=== PATIENT | female | born 1935 ===

== ENCOUNTER → 2018-01-05 | Outpatient (CLI) | payer MEDICARE, OTHER ==
[~2018-01-05] MED LIST: AMLO-105 PO; ASPI-1471 PO; CHOL200018 PO; CIPR-214 PO; EZET10TA41 PO; FEXO-72 PO; LOR5/325 PO; METO-235 PO; NAPR-1043 PO; UBID100C9 PO
== END ==
LOC: LAB 08:36
PROVIDERS: ATTEND Internal Medicine
DX: R30.0 Dysuria (principal)
CPT/HCPCS: 81001; 87088

== ENCOUNTER 2018-01-06 10:27 | Emergency (ER) | payer MEDICARE, OTHER ==
--- NOTE | 2018-01-06 10:56 | ER Report ---
History and Physical Time Seen By MD: 10:56 Hx. of Stated Complaint: Patient tripped and fell. Hit head no LOC> Abrasion to bridge of nose and complaints of neck pain. C-collar placed at 1035. HPI/ROS CHIEF COMPLAINT: Fall HISTORY OF PRESENT ILLNESS: 82-year-old female patient presents to emergency r oom with complaint of a fall. Patient states that she was in her backyard and was walking when she caught the toe of her flip-flop causing her to fall forward. Patient states she put her hands out to catch herself, however she did hit her forehead on the concrete. Patient is unsure how she did that. Patient states she does have a significant headache. She also has some neck pain. P rafael is currently in a c-collar. Patient also has pain to the right lower leg and does have some bruising and abrasion there. Patient does not believe that she had any loss of consciousness, however she states she did have a stent in her forehead. She denies having any nausea, vomiting or diarrhea. Patient denies any shortness of breath or chest pain. REVIEW OF SYSTEMS: Respiratory: No cough, no dyspnea. Cardiovascular: No chest pain, no palpitations. Gastrointestinal: No vomiting, no abdominal pain. Musculoskeletal: As noted above Allergies: Coded Allergies: Nykjlit-Iil-Ner Reductase Inhibitor (Verified Adverse Reaction, Intermediate, myalgias, 01/06/18) Home Meds Active Scripts Ciprofloxacin Hcl (CIPROFLOXACIN HCL) 500 Mg Tablet, 1 TAB PO BID, #6 TAB 0 Refills Prov:LETY PARADA MD 01/05/18 Ezetimibe (ZETIA) 10 Mg Tablet, 1 TAB PO QDAY, #90 TAB 3 Refills Prov:LETY PARADA MD 12/01/17 Metoprolol Succinate (TOPROL XL) 100 Mg Tab.er.24h, 1 TAB PO QDAY, #90 TAB 3 Refills Prov:LETY PARADA MD 12/01/17 Amlodipine Besylate/Benazepril (LOTREL 10-20 MG CAPSULE) 1 Each Capsule, 1 CAP PO QDAY, #90 CAPSULE 3 Refills Prov:LETY PARADA MD 12/01/17 Reported Medications Ubidecarenone (CO Q-10) 100 Mg Capsule, 3 CAP PO QDAY, CAPSULE 12/01/17 Cholecalciferol (Vitamin D3) (VITAMIN D) 2,000 Unit Tablet, 1 TAB PO QDAY, 12/01/17 Fexofenadine Hcl (JOSE MARTIN ALLERGY) 60 Mg Tablet, 1 TAB PO BID PRN for allergies 12/01/17 Naproxen Sodium (ALEVE) 220 Mg Tablet, 1 TAB PO BID PRN for pain, TAB 12/01/17 Aspirin (ASPIR 81) 81 Mg Tablet.dr, 1 TAB PO 3XW, TAB 12/01/17 Past Medical/Surgical History Patient has a past medical history of irregular heartbeat, hypertension, hyperli pidemia Patient has a surgical history of hysterectomy, carpal tunnel release, knee surgery, cataract surgery. Reviewed Nurses Notes: Yes Smoking Status: Former Smoker Exposure to Second Hand Smoke?: Yes Hx Substance Use Disorder: No Hx Alcohol Use: No Constitutional Vital Sign - Last 24 Hours 01/06/18 01/06/18 01/06/18 01/06/18 10:43 10:52 10:52 10:57 Temp 97.0 Pulse 63 ? Resp 16 B/P (MAP) 124/69 Pulse Ox 94 01/06/18 01/06/18 01/06/18 01/06/18 10:57 11:02 11:02 11:07 Pulse ? 01/06/18 01/06/18 01/06/18 01/06/18 11:07 11:12 11:12 11:17 Pulse ? 01/06/18 01/06/18 01/06/18 01/06/18 11:17 11:22 11:22 11:27 Pulse ? 01/06/18 01/06/18 01/06/18 01/06/18 11:27 11:30 11:30 11:32 Pulse ??? 58 B/P (MAP) 133/71 (91) 133/71 (91) Pulse Ox 94 01/06/18 01/06/18 01/06/18 01/06/18 11:32 11:37 11:37 11:42 Pulse 58 59 59 62 Pulse Ox 94 93 93 92 01/06/18 01/06/18 01/06/18 01/06/18 11:42 11:47 11:47 11:52 Pulse 62 61 61 60 Pulse Ox 92 94 94 93 01/06/18 01/06/18 01/06/18 01/06/18 11:57 12:02 12:07 12:10 Pulse 57 62 61 B/P (MAP) 130/69 (89) Pulse Ox 93 95 95 Physical Exam General Appearance: The patient is alert, has no immediate need for airway protection and no current signs of toxicity. Respiratory: Chest is non tender, lungs are clear to auscultation. Cardiac: regular rate and rhythm Gastrointestinal: Abdomen is soft and non tender, no masses, bowel sounds normal. Musculoskeletal: Neck: Neck is unable to be assessed at this time secondary to c-collar in place. Extremities have full range of motion and are non tender. Skin: No rashes or lesions. Neuro: Patient is alert and oriented 4, cranial nerves II through XII grossly intact. DIFFERENTIAL DIAGNOSIS: After history and physical exam differential diagnosis was considered for head injury including but not limited to concussion, skull fracture, intraparenchymal contusion, subarachnoid, subdural and epidural hemato ma. Medical Decision Making EKG/Imaging Imaging EXAMINATION: CT Head without intravenous contrast CT Cervical spine without intravenous contrast HISTORY: Trauma. TECHNIQUE: Head: Axial images were obtained from the skull base to the vertex without intravenous contrast. Sagittal and coronal reformatted images are also submitted. Cervical spine: Axial images were obtained from the skull base through the upper thoracic spine without IV contrast administration. Coronal and sagittal reformatted images were obtained from the axial source data. One of the following dose optimization techniques was utilized in the performance of this exam: Automated exposure control; adjustment of the mA and/or kV according to the patient's size; or use of an iterative reconstruction technique. Specific details can be referenced in the facility's radiology CT exam operational policy. COMPARISON: None available. FINDINGS: HEAD: Brain volume: Normal. Ventricles: Negative. Acute ischemic changes: None. Hemorrhage: None. Masses / edema: None. Pena-white: Negative. White matter: Negative. Vessels: Calcified plaque in the carotid siphons and vertebral arteries. Normal density in the dural venous sinuses. Extra-axial: Negative. Calvarium / skull base: Negative. Visualized sinuses / orbits: Mild mucosal thickening in the ethmoid air cells. CERVICAL SPINE: Alignment: 3 mm of anterior listhesis of C5 over C6. Cranio-cervical junction: Moderate to severe degenerative changes in the atlantodental joint with partially calcified pannus posterior to the dens. Vertebral bodies: Negative. Posterior elements: Multilevel facet hypertrophy. 11 x 6 x 4 mm ligamentum flavum calcification on the left at C6-C7. Hardware: None. Disc Spaces: Multilevel degenerative disc disease. Soft tissues: No prevertebral soft tissue swelling. Visualized upper chest: Negative. IMPRESSION: 1. No acute intracranial abnormality. 2. No acute cervical spine fracture. 3. Multilevel degenerative disc disease and facet hypertrophy in the cervical spine. Report Dictated By: Jg Blevins MD at 01/06/2018 11:33 AM Report E-Signed By: Jg Blevins MD at 01/06/2018 11:42 AM Exam type: TIBIA FIBULA RIGHT History: Fell today, pain on right side Comparison: None. Findings: Two views of the right tibia and fibula demonstrate postsurgical changes to the proximal right tibia with multiple screws. There is no evidence of acute fracture or dislocation identified. Incidentally noted are moderate degenerative changes involving the lateral compartment and mild generative changes involving the medial compartment of the right knee IMPRESSION: 1. Postsurgical changes of the proximal right tibia although no evidence of acute fracture or dislocation seen Report Dictated By: Yolanda Castanon MD at 01/06/2018 11:30 AM Report E-Signed By: Yolanda Castanon MD at 01/06/2018 11:44 AM ED Course/Re-evaluation ED Course Patient was admitted to exam room, history and physical were obtained. Differential diagnoses were considered. On examination patient does have abrasion to the bridge of her nose, she has abrasion and bruising to the right lower leg as well. C-collar is in place. Patient was alert and oriented 4, cranial nerves II through XII grossly intact. Her age and the nature the fall CT scan of the head was done due to the neck pain is cervical spine CT was done as well. I did get an x-ray of the lower leg as she was having some tenderness there although she is able to walk and I did not anticipate any fractures. CT scan of the head and the neck were negative, x-rays of the right lower leg were also negative. I discussed the findings with the patient and her . I did remove the c-collar and patient was able to move her neck without any difficulty and without any pain. We will go ahead and discharge the patient home at this time. She states Tylenol or ibuprofen as a pain. She tried to emergency room if condition worsens. She is to follow-up with her primary care provider the next week. Patient and her verbalized understanding and agreement with plan. Decision to Disposition Date: Jan 06, 2018 Decision to Disposition Time: 12:05 Depart Departure Latest Vital Signs Vital Signs Date Time Temp Pulse Resp B/P (MAP) Pulse Ox O2 Delivery O2 Flow Rate FiO2 01/06/18 12:10 130/69 (89) 01/06/18 12:07 61 95 01/06/18 10:43 97.0 16 Impression: Primary Impression: Head contusion Additional Impression: Contusion of leg, right Condition: Improved Disposition: HOME OR SELF-CARE Referrals: LETY PARADA MD (PCP) Patient Instructions: Contusion in Adults (ED) Additional Instructions: Increase fluid intake. Get plenty of rest. Limit activity by pain. Ice sore areas. Follow up with your primary care provider in the next week. Return to the ER if condition worsens. Problem Qualifiers Primary Impression: Head contusion Encounter type: initial encounter Contusion of head detail: scalp Qualified Codes: S00.03XA - Contusion of scalp, initial encounter Additional Impression: Contusion of leg, right Encounter type: initial encounter Qualified Codes: S80.11XA - Contusion of right lower leg, initial encounter TORIN MONTESINOS Jan 06, 2018 10:56
--- NOTE | 2018-01-06 11:46 | RADIOLOGY IMAGING REPORT ---
FACILITY: [facility] [place] PATIENT NAME: Claudette Raymond : 1935 MR: [id number] V: [id number] EXAM DATE: ORDERING PHYSICIAN: TORIN MONTESINOS TECHNOLOGIST: Location: [facility] Patient: Claudette Raymond : 1935 Visit/Account:[id number] Date of Sevice: 01/06/2018 EXAMINATION: CT Head without intravenous contrast CT Cervical spine without intravenous contrast HISTORY: Trauma. TECHNIQUE: Head: Axial images were obtained from the skull base to the vertex without intravenous contrast. Sa gittal and coronal reformatted images are also submitted. Cervical spine: Axial images were obtained from the skull base through the upper thoracic spine with out IV contrast administration. Coronal and sagittal reformatted images were obtained from the axial source data. One of the following dose optimization techniques was utilized in the performance of this exam: Autom ated exposure control; adjustment of the mA and/or kV according to the patient's size; or use of an i terative reconstruction technique. Specific details can be referenced in the facility's radiology C T exam operational policy. COMPARISON: None available. FINDINGS: HEAD: Brain volume: Normal. Ventricles: Negative. Acute ischemic changes: None. Hemorrhage: None. Masses / edema: None. Pena-white: Negative. White matter: Negative. Vessels: Calcified plaque in the carotid siphons and vertebral arteries. Normal density in the dural venous sinuses. Extra-axial: Negative. Calvarium / skull base: Negative. Visualized sinuses / orbits: Mild mucosal thickening in the ethmoid air cells. CERVICAL SPINE: Alignment: 3 mm of anterior listhesis of C5 over C6. Cranio-cervical junction: Moderate to severe degenerative changes in the atlantodental joint with par tially calcified pannus posterior to the dens. Vertebral bodies: Negative. Posterior elements: Multilevel facet hypertrophy. 11 x 6 x 4 mm ligamentum flavum calcification on th e left at C6-C7. Hardware: None. Disc Spaces: Multilevel degenerative disc disease. Soft tissues: No prevertebral soft tissue swelling. Visualized upper chest: Negative. IMPRESSION: 1. No acute intracranial abnormality. 2. No acute cervical spine fracture. 3. Multilevel degenerative disc disease and facet hypertrophy in the cervical spine. Report Dictated By: Jg Blevins MD at 01/06/2018 11:33 AM Report E-Signed By: Jg Blevins MD at 01/06/2018 11:42 AM WSN:[email or web address]
--- NOTE | 2018-01-06 11:47 | RADIOLOGY IMAGING REPORT ---
FACILITY: [facility] PATIENT NAME: Claudette Raymond : 1935 MR: [id number] V: [id number] EXAM DATE: ORDERING PHYSICIAN: TORIN MONTESINOS TECHNOLOGIST: Location: [facility] Patient: Claudette Raymond : 1935 Visit/Account:[id number] Date of Sevice: 01/06/2018 EXAMINATION: CT Head without intravenous contrast CT Cervical spine without intravenous contrast HISTORY: Trauma. TECHNIQUE: Head: Axial images were obtained from the skull base to the vertex without intravenous contrast. Sa gittal and coronal reformatted images are also submitted. Cervical spine: Axial images were obtained from the skull base through the upper thoracic spine with out IV contrast administration. Coronal and sagittal reformatted images were obtained from the axial source data. One of the following dose optimization techniques was utilized in the performance of this exam: Autom ated exposure control; adjustment of the mA and/or kV according to the patient's size; or use of an i terative reconstruction technique. Specific details can be referenced in the facility's radiology C T exam operational policy. COMPARISON: None available. FINDINGS: HEAD: Brain volume: Normal. Ventricles: Negative. Acute ischemic changes: None. Hemorrhage: None. Masses / edema: None. Pena-white: Negative. White matter: Negative. Vessels: Calcified plaque in the carotid siphons and vertebral arteries. Normal density in the dural venous sinuses. Extra-axial: Negative. Calvarium / skull base: Negative. Visualized sinuses / orbits: Mild mucosal thickening in the ethmoid air cells. CERVICAL SPINE: Alignment: 3 mm of anterior listhesis of C5 over C6. Cranio-cervical junction: Moderate to severe degenerative changes in the atlantodental joint with par tially calcified pannus posterior to the dens. Vertebral bodies: Negative. Posterior elements: Multilevel facet hypertrophy. 11 x 6 x 4 mm ligamentum flavum calcification on th e left at C6-C7. Hardware: None. Disc Spaces: Multilevel degenerative disc disease. Soft tissues: No prevertebral soft tissue swelling. Visualized upper chest: Negative. IMPRESSION: 1. No acute intracranial abnormality. 2. No acute cervical spine fracture. 3. Multilevel degenerative disc disease and facet hypertrophy in the cervical spine. Report Dictated By: Jg Blevins MD at 01/06/2018 11:33 AM Report E-Signed By: Jg Blevins MD at 01/06/2018 11:42 AM WSN:[email or web address]
--- NOTE | 2018-01-06 11:48 | RADIOLOGY IMAGING REPORT ---
FACILITY: [facility] PATIENT NAME: Claudette Raymond : 1935 MR: [id number] V: [id number] EXAM DATE: ORDERING PHYSICIAN: TORIN MONTESINOS TECHNOLOGIST: [place] [facility] [place] Claudette [place] : 1935 Visit/Account:[id number] Date of Sevice: 01/06/2018 Exam type: TIBIA FIBULA RIGHT History: Fell today, pain on right side Comparison: None. Findings: Two views of the right tibia and fibula demonstrate postsurgical changes to the proximal right tibia with multiple screws. There is no evidence of acute fracture or dislocation identified. Incidentall y noted are moderate degenerative changes involving the lateral compartment and mild generative [place] es involving the medial compartment of the right knee IMPRESSION: 1. Postsurgical changes of the proximal right tibia although no evidence of acute fracture or disloc ation seen Report Dictated By: Yolanda Castanon MD at 01/06/2018 11:30 AM Report E-Signed By: Yolanda Castanon MD at 01/06/2018 11:44 AM WSN:[email or web address]
[2018-01-06 12:10] VITALS: BP 130/69
== END 2018-01-06 12:17 | disposition home or self-care (01) ==
LOC: ER 11:03
DX: S00.03XA Contusion of scalp, initial encounter (principal); S80.11XA Contusion of right lower leg, initial encounter
CPT/HCPCS: 70450; 72125; 99284

== ENCOUNTER → 2018-06-23 | Outpatient (CLI) | payer MEDICARE, OTHER ==
[~2018-06-23] MED LIST changes: +FLU180SY11 IM
--- NOTE | 2018-06-23 16:26 | RADIOLOGY IMAGING REPORT ---
FACILITY: [facility] [place] PATIENT NAME: Claudette Raymond : 1935 MR: [id number] V: [id number] EXAM DATE: ORDERING PHYSICIAN: FLEX GONZALEZ TECHNOLOGIST: Location: [facility] Patient: Claudette Raymond : 1935 Visit/Account:[id number] Date of Sevice: 06/23/2018 Bilateral lower extremity venous Doppler duplex ultrasound scan. HISTORY: Leg pain, edema. COMPARISON: None. A color flow Doppler duplex ultrasound examination with spectral analysis was performed on both lower extremities. The common femoral veins, superficial femoral veins, and popliteal veins are normal. Th christine vessels compress and augment normally. The upper portions of the trifurcation veins are unremarka ble. Portions of the deep veins of the calves are obscured. No intraluminal filling defects are ident ified to suggest acute thrombus in the deep venous system. No abnormal fluid collections. A venous reflux study was not performed at this time. Note that Doppler ultrasound is somewhat insensitive below the knees. IMPRESSION: Negative for acute deep vein thrombosis. Report Dictated By: Klaus Fernandez MD at 06/23/2018 4:20 PM Report E-Signed By: Klaus Fernandez MD at 06/23/2018 4:21 PM WSN:[email or web address]
== END ==
LOC: US 00:29
PROVIDERS: ATTEND Internal Medicine Cardiovascular Disease
DX: I50.31 Acute diastolic (congestive) heart failure (principal); R60.0 Localized edema
CPT/HCPCS: 36415; 82040; 82247; 82310; 82374; 82435; 82565; 82947; 83880; 84075; 84132; 84155; 84295; 84450; 84460; 84520; 85027; 93306; 93970

== ENCOUNTER 2018-07-28 10:14 | Emergency (ER) | payer MEDICARE, OTHER ==
--- NOTE | 2018-07-28 10:17 | ER Report ---
History and Physical Time Seen By MD: 10:16 Allergies: Coded Allergies: Ffipjnp-Bnw-Amn Reductase Inhibitor (Verified Adverse Reaction, Intermediate, myalgias, 07/28/18) Home Meds Active Scripts Ezetimibe (ZETIA) 10 Mg Tablet, 1 TAB PO QDAY, #90 TAB 3 Refills Prov:LETY PARADA MD 12/01/17 Metoprolol Succinate (TOPROL XL) 100 Mg Tab.er.24h, 1 TAB PO QDAY, #90 TAB 3 Refills Prov:LETY PARADA MD 12/01/17 Amlodipine Besylate/Benazepril (LOTREL 10-20 MG CAPSULE) 1 Each Capsule, 1 CAP PO QDAY, #90 CAPSULE 3 Refills Prov:LETY PARADA MD 12/01/17 Reported Medications Ubidecarenone (CO Q-10) 100 Mg Capsule, 3 CAP PO QDAY, CAPSULE 12/01/17 Cholecalciferol (Vitamin D3) (VITAMIN D) 2,000 Unit Tablet, 1 TAB PO QDAY, 12/01/17 Naproxen Sodium (ALEVE) 220 Mg Tablet, 1 TAB PO BID PRN for pain, TAB 12/01/17 Aspirin (ASPIR 81) 81 Mg Tablet.dr, 1 TAB PO 3XW, TAB 12/01/17 Discontinued Reported Medications Fexofenadine Hcl (JOSE MARTIN ALLERGY) 60 Mg Tablet, 1 TAB PO BID PRN for allergies 12/01/17 Discontinued Scripts Pravastatin Sodium (PRAVACHOL) 20 Mg Tablet, 20 MG PO QDAY, #30 TAB 11 Refills Prov:EDY FLORES MD 06/28/18 Smoking Status: Former Smoker Exposure to Second Hand Smoke?: Yes Hx Substance Use Disorder: No Hx Alcohol Use: No Constitutional Vital Sign - Last 24 Hours 07/28/18 10:26 Temp 97.9 Pulse 55 Resp 17 B/P (MAP) 152/79 Pulse Ox 95 O2 Delivery Room Air Depart Departure Latest Vital Signs Vital Signs Date Time Temp Pulse Resp B/P (MAP) Pulse Ox O2 Delivery O2 Flow Rate FiO2 07/28/18 10:26 97.9 55 17 152/79 95 Room Air Condition: Stable Disposition: HOME OR SELF-CARE Referrals: LETY PARADA MD (PCP) ANTONIO OREILLY MD Jul 28, 2018 10:17
--- NOTE | 2018-07-28 11:06 | ER Report ---
History and Physical Time Seen By MD: 11:06 Hx. of Stated Complaint: DIZZINESS HPI/ROS CHIEF COMPLAINT: Dizziness HISTORY OF PRESENT ILLNESS: 82-year-old female patient presents to emergency room with complaint of dizziness. Patient states she has been having difficulties with lightheadedness and dizziness since April. She states this been significantly worse over the last 2 days. She states yesterday she was not able to do anything for the dizziness, which seemed to improve the afternoon. She did eat and drink supply side. When she woke up this morning she felt good. She states that she was eating her breakfast he started feeling really lightheaded. She states that he felt like the world was turning. Also states she felt this warm sensation starting at her feet and going up to her head. That caused her to sweat. At that time she felt like she needed to be evaluated and so had her bring her to the emergency room. Patient denies any recent changes to her medications, any recent changes to her diet. REVIEW OF SYSTEMS: Respiratory: No cough, no dyspnea. Cardiovascular: No chest pain, no palpitations. Gastrointestinal: No vomiting, no abdominal pain. Musculoskeletal: No back pain. Allergies: Coded Allergies: Llyakjt-Htc-Gyq Reductase Inhibitor (Verified Adverse Reaction, Intermediate, myalgias, 07/28/18) Home Meds Active Scripts Ezetimibe (ZETIA) 10 Mg Tablet, 1 TAB PO QDAY, #90 TAB 3 Refills Prov:LETY PARADA MD 12/01/17 Metoprolol Succinate (TOPROL XL) 100 Mg Tab.er.24h, 1 TAB PO QDAY, #90 TAB 3 Refills Prov:LETY PARADA MD 12/01/17 Amlodipine Besylate/Benazepril (LOTREL 10-20 MG CAPSULE) 1 Each Capsule, 1 CAP PO QDAY, #90 CAPSULE 3 Refills Prov:LETY PARADA MD 12/01/17 Reported Medications Ubidecarenone (CO Q-10) 100 Mg Capsule, 3 CAP PO QDAY, CAPSULE 12/01/17 Cholecalciferol (Vitamin D3) (VITAMIN D) 2,000 Unit Tablet, 1 TAB PO QDAY, 12/01/17 Naproxen Sodium (ALEVE) 220 Mg Tablet, 1 TAB PO BID PRN for pain, TAB 12/01/17 Aspirin (ASPIR 81) 81 Mg Tablet.dr, 1 TAB PO 3XW, TAB 12/01/17 Discontinued Reported Medications Fexofenadine Hcl (JOSE MARTIN ALLERGY) 60 Mg Tablet, 1 TAB PO BID PRN for allergies 12/01/17 Discontinued Scripts Pravastatin Sodium (PRAVACHOL) 20 Mg Tablet, 20 MG PO QDAY, #30 TAB 11 Refills Prov:EDY KUMAR MD 06/28/18 Past Medical/Surgical History Patient has a past medical history of palpitations, hypertension, hyperlipidemia, urinary incontinence, right hand fracture, knee fracture. Patient has a surgical history of partial hysterectomy, orthopedic surgery of her knee. Patient has a family medical history of stroke. Reviewed Nurses Notes: Yes Smoking Status: Former Smoker Exposure to Second Hand Smoke?: Yes Hx Substance Use Disorder: No Hx Alcohol Use: No Constitutional Vital Sign - Last 24 Hours 07/28/18 07/28/18 07/28/18 07/28/18 10:26 10:30 11:00 11:22 Temp 97.9 Pulse 55 59 55 Resp 17 16 13 B/P (MAP) 152/79 142/71 (94) 143/76 (98) 145/72 (96) Pulse Ox 95 94 91 O2 Delivery Room Air 07/28/18 07/28/18 07/28/18 07/28/18 11:24 11:24 11:27 11:30 Pulse 58 57 59 56 Resp 10 B/P (MAP) 153/78 (103) 145/72 (96) 145/75 (98) 150/76 (100) 153/75 (101) 154/75 (101) Pulse Ox 91 07/28/18 07/28/18 07/28/18 07/28/18 12:00 12:04 12:04 12:30 Pulse ??? 148 Resp 8 B/P (MAP) 157/80 (105) 157/80 (105) 139/72 (94) Pulse Ox 84 07/28/18 13:00 Pulse 59 Resp 22 B/P (MAP) 150/86 (107) Pulse Ox 93 Physical Exam General Appearance: The patient is alert, has no immediate need for airway protection and no current signs of toxicity. Respiratory: Chest is non tender, lungs are clear to auscultation. Cardiac: regular rate and rhythm Gastrointestinal: Abdomen is soft and non tender, no masses, bowel sounds normal. Musculoskeletal: Neck: Neck is supple and non tender. Extremities have full range of motion and are non tender. Skin: No rashes or lesions. Neuro: Patient is alert and oriented 4, cranial nerves II through XII grossly intact. DIFFERENTIAL DIAGNOSIS: After history and physical exam differential diagnosis w as considered for dizziness including but not limited to peripheral and central causes of vertigo, orthostatic causes including dehydration, and blood loss. Medical Decision Making Data Points Result Diagram: 07/28/18 1042 07/28/18 1042 Laboratory Hematology Test 07/28/18 10:42 07/28/18 12:00 Red Blood Count 5.13 M/uL (4.17-5.56) Mean Corpuscular Volume 87.5 fL (80.0-96.0) Mean Corpuscular Hemoglobin 29.4 pg (26.0-33.0) Mean Corpuscular Hemoglobin Concent 33.6 g/dL (32.0-36.0) Red Cell Distribution Width 13.4 % (11.5-14.5) Mean Platelet Volume 9.2 fL (7.2-11.1) Neutrophils (%) (Auto) 57.1 % (39.4-72.5) Lymphocytes (%) (Auto) 34.1 % (17.6-49.6) Monocytes (%) (Auto) 6.4 % (4.1-12.4) Eosinophils (%) (Auto) 1.9 % (0.4-6.7) Basophils (%) (Auto) 0.5 % (0.3-1.4) Nucleated RBC Relative Count (auto) 0.1 /100WBC Neutrophils # (Auto) 2.9 K/uL (2.0-7.4) Lymphocytes # (Auto) 1.7 K/uL (1.3-3.6) Monocytes # (Auto) 0.3 K/uL (0.3-1.0) Eosinophils # (Auto) 0.1 K/uL (0.0-0.5) Basophils # (Auto) 0.0 K/uL (0.0-0.1) Nucleated RBC Absolute Count (auto) 0.00 K/uL Peripheral Blood Smear No Y/N Sodium Level 140 mmol/L (137-145) Potassium Level 3.8 mmol/L (3.5-5.0) Chloride Level 103 mmol/L (98-107) Carbon Dioxide Level 27 mmol/L (22-31) Blood Urea Nitrogen 20 mg/dl (7-18) Creatinine 0.80 mg/dl (0.52-1.04) Glomerular Filtration Rate Calc > 60.0 Random Glucose 116 mg/dl (75-110) Calcium Level 9.6 mg/dl (8.4-10.2) Total Bilirubin 0.5 mg/dl (0.2-1.3) Aspartate Amino Transf (AST/SGOT) 25 U/L (0-35) Alanine Aminotransferase (ALT/SGPT) 26 U/L (0-56) Alkaline Phosphatase 69 U/L (0-126) Troponin I < 0.012 ng/ml Total Protein 7.5 g/dl (6.3-8.2) Albumin 4.5 g/dl (3.5-5.0) Amylase Level 85 U/L (0-110) Lipase 238 U/L (23-300) Urine Color Yellow Urine Clarity Clear Urine pH 7.0 pH (4.8-9.5) Urine Specific [place] 1.013 Urine Protein Negative mg/dL (NEGATIVE) Urine Glucose (UA) Negative mg/dL (NEGATIVE) Urine Ketones Negative mg/dL (NEGATIVE) Urine Blood Negative (NEGATIVE) Urine Nitrite Negative (NEGATIVE) Urine Bilirubin Negative (NEGATIVE) Urine Urobilinogen Negative mg/dL (0.2-1.9) Urine Leukocyte Esterase Trace (NEGATIVE) Urine RBC <1 /HPF (0-2/HPF) Urine WBC <1 /HPF (0-5/HPF) Urine Squamous Epithelial Cells Few /LPF (</=FEW) Urine Bacteria Negative /HPF (NONE-FEW) Urine Mucus None /HPF (NONE-FEW) Chemistry Test 07/28/18 10:42 07/28/18 12:00 White Blood Count 5.1 k/uL (4.5-11.0) Red Blood Count 5.13 M/uL (4.17-5.56) Hemoglobin 15.1 g/dL (12.0-16.0) Hematocrit 44.9 % (34.0-47.0) Mean Corpuscular Volume 87.5 fL (80.0-96.0) Mean Corpuscular Hemoglobin 29.4 pg (26.0-33.0) Mean Corpuscular Hemoglobin Concent 33.6 g/dL (32.0-36.0) Red Cell Distribution Width 13.4 % (11.5-14.5) Platelet Count 252 K/uL (150-450) Mean Platelet Volume 9.2 fL (7.2-11.1) Neutrophils (%) (Auto) 57.1 % (39.4-72.5) Lymphocytes (%) (Auto) 34.1 % (17.6-49.6) Monocytes (%) (Auto) 6.4 % (4.1-12.4) Eosinophils (%) (Auto) 1.9 % (0.4-6.7) Basophils (%) (Auto) 0.5 % (0.3-1.4) Nucleated RBC Relative Count (auto) 0.1 /100WBC Neutrophils # (Auto) 2.9 K/uL (2.0-7.4) Lymphocytes # (Auto) 1.7 K/uL (1.3-3.6) Monocytes # (Auto) 0.3 K/uL (0.3-1.0) Eosinophils # (Auto) 0.1 K/uL (0.0-0.5) Basophils # (Auto) 0.0 K/uL (0.0-0.1) Nucleated RBC Absolute Count (auto) 0.00 K/uL Peripheral Blood Smear No Y/N Glomerular Filtration Rate Calc > 60.0 Calcium Level 9.6 mg/dl (8.4-10.2) Total Bilirubin 0.5 mg/dl (0.2-1.3) Aspartate Amino Transf (AST/SGOT) 25 U/L (0-35) Alanine Aminotransferase (ALT/SGPT) 26 U/L (0-56) Alkaline Phosphatase 69 U/L (0-126) Troponin I < 0.012 ng/ml Total Protein 7.5 g/dl (6.3-8.2) Albumin 4.5 g/dl (3.5-5.0) Amylase Level 85 U/L (0-110) Lipase 238 U/L (23-300) Urine Color Yellow Urine Clarity Clear Urine pH 7.0 pH (4.8-9.5) Urine Specific [place] 1.013 Urine Protein Negative mg/dL (NEGATIVE) Urine Glucose (UA) Negative mg/dL (NEGATIVE) Urine Ketones Negative mg/dL (NEGATIVE) Urine Blood Negative (NEGATIVE) Urine Nitrite Negative (NEGATIVE) Urine Bilirubin Negative (NEGATIVE) Urine Urobilinogen Negative mg/dL (0.2-1.9) Urine Leukocyte Esterase Trace (NEGATIVE) Urine RBC <1 /HPF (0-2/HPF) Urine WBC <1 /HPF (0-5/HPF) Urine Squamous Epithelial Cells Few /LPF (</=FEW) Urine Bacteria Negative /HPF (NONE-FEW) Urine Mucus None /HPF (NONE-FEW) Urinalysis Test 07/28/18 12:00 Urine Color Yellow Urine Clarity Clear Urine pH 7.0 pH (4.8-9.5) Urine Specific [place] 1.013 Urine Protein Negative mg/dL (NEGATIVE) Urine Glucose (UA) Negative mg/dL (NEGATIVE) Urine Ketones Negative mg/dL (NEGATIVE) Urine Blood Negative (NEGATIVE) Urine Nitrite Negative (NEGATIVE) Urine Bilirubin Negative (NEGATIVE) Urine Urobilinogen Negative mg/dL (0.2-1.9) Urine Leukocyte Esterase Trace (NEGATIVE) Urine RBC <1 /HPF (0-2/HPF) Urine WBC <1 /HPF (0-5/HPF) Urine Squamous Epithelial Cells Few /LPF (</=FEW) Urine Bacteria Negative /HPF (NONE-FEW) Urine Mucus None /HPF (NONE-FEW) EKG/Imaging EKG Interpretation 12 lead EKG: Rhythm: Sinus bradycardia with a first-degree AV block [place]: normal QRS: Low voltage QRS ST segments: normal Imaging CT abdomen and pelvis with IV contrast Indication: Nausea and dizziness. Comparison: None available. . Technique: Axial CT images were obtained through the abdomen and pelvis during injection of nonionic iodinated intravenous contrast. Reformatted coronal and sagittal images were also obtained. One of the following dose optimization techniques was utilized in the performance of this exam: Automated exposure control; adjustment of the mA and/or kV according to the patient's size; or use of an iterative reconstruction technique. Specific details can be referenced in the facility's radiology CT exam operational policy. Contrast: 75 ml of Isovue-370 IV contrast. Findings: Lower lung ruiz: Mild scarring. Stable pleural-based 4 mm left lower lobe nodule. As this is less than 6 mm no further evaluation. Calcified granuloma in the right lower lobe. Lung bases otherwise clear. Liver: Subcentimeter cyst seen in the inferior right lobe liver which appears stable from the CT chest 03/27/2018. No other focal abnormality. Biliary: Gallbladder shows a prominent fold without other abnormality. The biliary system is unremarkable. Pancreas: No focal abnormality. Spleen: 6 stable 5 mm cyst in the superior lateral aspect. No other focal abnormality. Adrenal glands: Unremarkable. Kidneys / retroperitoneum: No evidence of nephrolithiasis or hydronephrosis. Stable bilateral small cysts, largest in the left measuring 1.7 cm. No solid renal lesions. Bowel / peritoneum / mesenteries: There are a few scattered diverticula along the colon without pericolonic inflammation. The colon shows no focal normality. The appendix is normal. Small bowel shows no focal normality or obstruction. The antrum portion stomach does show mild wall thickening without focal abnormality or inflammation. The stomach shows no other focal normality besides a small hiatal hernia. Stomach is mildly decompressed. No free air, free fluid, fluid collections or areas of inflammation. Tiny umbilical hernia containing fat. Lymph node assessment: No pathologic adenopathy identified. Pelvic structures: Uterus is not visualized may been surgically removed. The right ovary contains a 1.6 cm cyst. Left ovary is unremarkable. The remaining pelvic structures visualized within normal limits. Vessels: Mild atherosclerotic calcifications seen throughout a nonaneurysmal abdominal aorta and branches. Musculoskeletal / Body wall: No acute or aggressive osseous abnormality. Anterior spondylolisthesis of L4 over L5 due to facet arthropathy which measures 6.5 mm. Mild degenerative changes seen elsewhere. Bone island in the right pelvis. IMPRESSION: 1. There is mild thickening of the antrum portion of the stomach without focal normality or inflammation. This could be due to decompression as the stomach is partially decompressed versus early gastritis. 2. Diverticulosis without radiographic indication diverticulitis. 3. Other chronic findings as above. Report Dictated By: Castillo Edwards at 07/28/2018 12:23 PM Report E-Signed By: Castillo Edwards at 07/28/2018 12:[address] Head without contrast Indication: Dizziness and nausea. Comparison: 01/06/2018. Technique: Axial CT images were obtained through the brain from the skull base to the vertex without administration of IV contrast. Reformatted coronal and sagittal images were also obtained. One of the following dose optimization techniques was utilized in the performance of this exam: automated exposure control; adjustment of the mA and/or kV according to the patient's size; or use of an iterative reconstruction technique. Specific details can be referenced in the facility's radiology CT exam operational policy. Findings: No evidence of mass, mass effect, or midline shift. No acute intracranial hemorrhage or acute territorial infarction. No extra-axial fluid collection or hydrocephalus. Age-related cerebral atrophy. Periventricular white matter ischemic changes consistent small vessel disease. There is again a benign calcification seen in the lateral right occipital lobe and along the falx. Pena/white matter differentiation appears normal. Mild bilateral internal carotid artery calcifications. Bony structures show no fractures or lesions. The visualized paranasal sinuses and mastoid air cells are clear. IMPRESSION: 1. Senescent changes without acute abnormality. Report Dictated By: Castillo Edwards at 07/28/2018 12:17 PM Report E-Signed By: Castillo Edwards at 07/28/2018 12:22 PM ED Course/Re-evaluation ED Course Patient was admitted to an exam room, history and physical were obtained. Differential diagnoses were considered. On examination lungs are clear, heart is regular, abdomen soft nontender. Patient was alert and oriented 4, cranial nerves II through XII grossly intact. An IV started, a CBC, CMP, urinalysis, EKG, troponin, amylase, lipase were done. Lab results were unremarkable. CT scan of the head and abdomen were done which were also unremarkable. Orthostatic blood pressures did show the patient's heart rate went from 57 when laying to 59 when sitting to 56 and standing. I discussed findings with patient. I do have concerns that she may be taking too big of a dose of metoprolol metals causing her to feel lightheaded especially when standing. Her BUN was 20 and her creatinine was 0.8. She could have some possible dehydration. We did discuss increasing fluid intake, but more specifically using Gatorade or Gatorade zero to help with absorption of the water. I will have the patient follow-up with her primary care provider next week to discuss her metoprolol. Patient and her verbalized understanding and agreement with plan. Decision to Disposition Date: Jul 28, 2018 Decision to Disposition Time: 13:07 Depart Departure Latest Vital Signs Vital Signs Date Time Temp Pulse Resp B/P (MAP) Pulse Ox O2 Delivery O2 Flow Rate FiO2 07/28/18 13:00 59 22 150/86 (107) 93 07/28/18 10:26 97.9 Room Air Impression: Primary Impression: Lightheadedness Condition: Improved Disposition: HOME OR SELF-CARE Referrals: ALLAIS,LETY MD (PCP) Patient Instructions: Lightheadedness (ED) Additional Instructions: Increase fluid intake, consider trying Gatorade. Follow up with Dr. Kumar next week as scheduled. I do have concerns that your metoprolol is causing problems with your heart rate when you get up. Continue with your medications like normal. Return to the ER if condition worsens. TORIN MONTESINOS Jul 28, 2018 11:06
[2018-07-28] MEDS ORDERED: NS(*) 0.9% 500 ML BAG 500 ML IV ONE (11:15)
[2018-07-28 11:24] LABS: PLATELET COUNT, AUTOMATED 252 K/uL (150-450)
[2018-07-28] MEDS ORDERED: IOPAMIDOL 76% 150 ML INFUS BTL 150 ML ONE (11:49)
--- NOTE | 2018-07-28 12:25 | RADIOLOGY IMAGING REPORT ---
[place] [facility] [place] Claudette Raymond : 1935 MR: [id number] V: [id number] EXAM DATE: ORDERING PHYSICIAN: TORIN MONTESINOS TECHNOLOGIST: [place] [facility] [place] Claudette [place] : 1935 Visit/Account:[id number] Date of Sevice: 07/28/2018 CT Head without contrast Indication: Dizziness and nausea. Comparison: 01/06/2018. Technique: Axial CT images were obtained through the brain from the skull base to the vertex without administration of IV contrast. Reformatted coronal and sagittal images were also obtained. One of the following dose optimization techniques was utilized in the performance of this exam: autom ated exposure control; adjustment of the mA and/or kV according to the patient's size; or use of an i terative reconstruction technique. Specific details can be referenced in the facility's radiology CT exam operational policy. Findings: No evidence of mass, mass effect, or midline shift. No acute intracranial hemorrhage or acute territorial infarction. No extra-axial fluid collection or hydrocephalus. Age-related cerebral atrophy. Periventricular white matter ischemic changes consistent small vessel disease. There is again a benign calcification seen in the lateral right occipital lobe and along the falx. Pena/white matter differentiation appears nor mal. Mild bilateral internal carotid artery calcifications. Bony structures show no fractures or lesions. The visualized paranasal sinuses and mastoid air cells are clear. IMPRESSION: 1. Senescent changes without acute abnormality. Report Dictated By: Castillo Edwards at 07/28/2018 12:17 PM Report E-Signed By: Castillo Edwards at 07/28/2018 12:22 PM WSN:[id number]
--- NOTE | 2018-07-28 12:39 | RADIOLOGY IMAGING REPORT ---
FACILITY: [facility] PATIENT NAME: Claudette Raymond : 1935 MR: [id number] V: [id number] EXAM DATE: ORDERING PHYSICIAN: TORIN MONTESINOS TECHNOLOGIST: Location: [facility] Patient: Claudette Raymond : 1935 Visit/Account:[id number] Date of Sevice: 07/28/2018 CT abdomen and pelvis with IV contrast Indication: Nausea and dizziness. Comparison: None available. . Technique: Axial CT images were obtained through the abdomen and pelvis during injection of nonioni c iodinated intravenous contrast. Reformatted coronal and sagittal images were also obtained. One of the following dose optimization techniques was utilized in the performance of this exam: Autom ated exposure control; adjustment of the mA and/or kV according to the patient's size; or use of an i terative reconstruction technique. Specific details can be referenced in the facility's radiology C T exam operational policy. Contrast: 75 ml of Isovue-370 IV contrast. Findings: Lower lung ruiz: Mild scarring. Stable pleural-based 4 mm left lower lobe nodule. As this is less t luis 6 mm no further evaluation. Calcified granuloma in the right lower lobe. Lung bases otherwise danuta ar. Liver: Subcentimeter cyst seen in the inferior right lobe liver which appears stable from the CT ches t 03/27/2018. No other focal abnormality. Biliary: Gallbladder shows a prominent fold without other abnormality. The biliary system is unremark able. Pancreas: No focal abnormality. Spleen: 6 stable 5 mm cyst in the superior lateral aspect. No other focal abnormality. Adrenal glands: Unremarkable. Kidneys / retroperitoneum: No evidence of nephrolithiasis or hydronephrosis. Stable bilateral small c ysts, largest in the left measuring 1.7 cm. No solid renal lesions. Bowel / peritoneum / mesenteries: There are a few scattered diverticula along the colon without peric olonic inflammation. The colon shows no focal normality. The appendix is normal. Small bowel shows no focal normality or obstruction. The antrum portion stomach does show mild wall thickening without fo alicia abnormality or inflammation. The stomach shows no other focal normality besides a small hiatal he rnia. Stomach is mildly decompressed. No free air, free fluid, fluid collections or areas of inflammation. Tiny umbilical hernia containing fat. Lymph node assessment: No pathologic adenopathy identified. Pelvic structures: Uterus is not visualized may been surgically removed. The right ovary contains a 1.6 cm cyst. Left ovary is unremarkable. The remaining pelvic structures visualized within normal l imits. Vessels: Mild atherosclerotic calcifications seen throughout a nonaneurysmal abdominal aorta and bran ches. Musculoskeletal / Body wall: No acute or aggressive osseous abnormality. Anterior spondylolisthesis o f L4 over L5 due to facet arthropathy which measures 6.5 mm. Mild degenerative changes seen elsewhere . Bone island in the right pelvis. IMPRESSION: 1. There is mild thickening of the antrum portion of the stomach without focal normality or inflammat ion. This could be due to decompression as the stomach is partially decompressed versus early gastrit is. 2. Diverticulosis without radiographic indication diverticulitis. 3. Other chronic findings as above. Report Dictated By: Castillo Edwards at 07/28/2018 12:23 PM Report E-Signed By: Castillo Edwards at 07/28/2018 12:35 PM WSN:[id number]
[2018-07-28 13:00] VITALS: BP 150/86
--- NOTE | 2018-07-28 14:21 | EKG ---
FACILITY: [facility] [place] PATIENT NAME: VANNESSA RODARTE : [id number] MR: [id number] V: [id number] EXAM DATE: ORDERING PHYSICIAN: TORIN MONTESINOS TECHNOLOGIST: DOMINIC Test Reason : DIZZINESS Blood Pressure : / mmHG Vent. Rate : 053 BPM Atrial Rate : 053 BPM P-R Int : 214 ms QRS Dur : 066 ms QT Int : 446 ms P-R-T Axes : 063 022 077 degrees QTc Int : 418 ms Sinus bradycardia with 1st degree AV block Low voltage QRS Nonspecific ST findings inferolaterally Borderline ECG No previous ECGs available Confirmed by JACKELYN MARAVILLA ([id number]) on 07/28/2018 3:26:30 PM Referred By: AFIA Confirmed By:JACKELYN MARAVILLA
== END 2018-07-28 13:14 | disposition home or self-care (01) ==
LOC: ER 10:21
DX: R42 Dizziness and giddiness (principal)
CPT/HCPCS: 70450; 74177; 81001; 82150; 83690; 84484; 85025; 93005; 96360; 99284; J7040; Q9967; 82040; 82247; 82310; 82374; 82435; 82565; 82947; 84075; 84132; 84155; 84295; 84450; 84460; 84520

== ENCOUNTER → 2018-07-28 | Outpatient (CLI) | payer MEDICARE, OTHER ==
[~2018-07-28] MED LIST changes: +PRAV20TA65 PO
--- NOTE | 2018-07-28 15:29 | RADIOLOGY IMAGING REPORT ---
FACILITY: [facility] PATIENT NAME: Claudette Raymond : 1935 MR: [id number] V: [id number] EXAM DATE: ORDERING PHYSICIAN: EDY FLORES TECHNOLOGIST: Location: [facility] [place] Patient: Claudette Raymond : 1935 Visit/Account:[id number] Date of Sevice: 07/28/2018 DEXA Scan Clinical history: Asymptomatic postmenopausal estrogen deficiency. Comparison: None available. LUMBAR SPINE: The bone mineral density (BMD) measured from L1-L4 correlates with a Z-score 2.3 and a T-score of 0.2 which is Normal as defined by the World Health Organization. The corresponding risk of fracture in the lumbar spine is Not increased compared with a young adult reference population. HIP: Bone mineral density (BMD) measured in the Left total hip region correlates with a Z-score 0.6 and a T-score of -1.8 which is osteopenia as defined by the World Health Organization. The corresponding r isk of fracture in the hip is 3-4 times increased compared with a young adult reference population. T score left femoral neck -2.3 Bone mineral density (BMD) measured in the Femoral Neck region measures 0.714 g/cm2. Impression: 1. Lumbar spine: Normal. 2. Left Hip: Osteopenia. 3. Femoral Neck: Bone Mineral Density is 0.714 g/cm2 The next DEXA scan of this patient should include the following sites: L1-L4 and the left hip. FRAX? WHO Fracture Risk Assessment Tool link: <http://www.shef.ac.uk/FRAX/tool.jsp?[email or web address]> PLEASE NOTE: 1) The World Health Organization defines low BMD as follows: T-score Normal > -1 Osteopenia < -1 and > -2.5 Osteoporosis < -2.5 without fractures Established osteoporosis < -2.5 with fractures 2) In general, you may wish to consider: Diagnosis Treatment Follow-up DEXA Normal BMD Prevention 2-3 years Osteopenia Prevention/therapy 1-2 years Osteoporosis Therapy Yearly 3) Fracture risk estimated from the T-score is more accurate for vertebral fractures (often spontane ous) than for hip fractures. . Report Dictated By: Yolanda Castanon MD at 07/28/2018 3:04 PM Report E-Signed By: Yolanda Castanon MD at 07/28/2018 3:24 PM [id number]:[id number]
--- NOTE | 2018-07-29 09:15 | RADIOLOGY IMAGING REPORT ---
FACILITY: [facility] [place] PATIENT NAME: VANNESSA RODARTE : [id number] MR: [id number] V: [id number] EXAM DATE: [id number] ORDERING PHYSICIAN: EDY FLORES TECHNOLOGIST: Venecia Turner PROCEDURE:BILATERAL DIGITAL SCREENING MAMMOGRAM WITH CAD ASSISTED INTERPRETATION & 3D TOMOSYNTHESIS COMPARISON:Prior mammograms dated 02/19/17, 01/09/15, 01/16/14, 08/31/11 INDICATIONS:Screening FINDINGS: There are scattered areas of fibroglandular density throughout the breasts. The parenchymal pattern has remained stable when allowing for difference in mammographic technique & patient positioning. DIAGNOSTIC CATEGORY 1--NEGATIVE. RECOMMENDATIONS: ROUTINE MAMMOGRAM AND CLINICAL EVALUATION. IMPRESSION: BIRADS 1: Negative. No significant abnormality is seen. Dictated by: Yolanda Castanon M.D. on 07/28/2018 at 16:50 Transcribed by: ISAK on 07/29/2018 at 8:24 Approved by: Yolanda Castanon M.D. on 07/29/2018 at 9:13 [facility]
== END ==
LOC: MAMO 00:54
PROVIDERS: ATTEND Emergency Medicine
DX: Z12.31 Encounter for screening mammogram for malignant neoplasm of breast (principal); Z78.0 Asymptomatic menopausal state; M85.80 Other specified disorders of bone density and structure, unspecified site
CPT/HCPCS: 77063; 77067; 77080

== ENCOUNTER → 2018-08-01 | Outpatient (CLI) | payer MEDICARE, OTHER | LOC: LAB 09:56 | PROVIDERS: ATTEND Emergency Medicine | DX: E78.00 Pure hypercholesterolemia, unspecified (principal) | CPT/HCPCS: 36415; 82465; 83718; 84478 ==

== ENCOUNTER → 2018-08-10 | Outpatient (CLI) | payer MEDICARE, OTHER | LOC: LAB 14:45 | PROVIDERS: ATTEND Emergency Medicine | DX: M81.0 Age-related osteoporosis without current pathological fracture (principal); I10 Essential (primary) hypertension | CPT/HCPCS: 36415; 82306; 82607 ==

== ENCOUNTER 2018-08-11 00:11 | Day surgery (SDC) | payer MEDICARE, OTHER ==
[~2018-08-11] VITALS: Ht 152.4 cm; Wt 58.5 kg
[2018-08-11 09:04] VITALS: BP 136/68
[2018-08-11] MEDS ORDERED: LIDOCAINE MPF 1% 5 ML VIAL ONE (09:09)
[2018-08-11] MEDS ORDERED: DEXAMETHASONE SOD 4 MG/ML VIAL ONE (09:09)
[2018-08-11] MEDS ORDERED: PROPOFOL EMUL(*) 10MG/ML 20 ML 20 ML ONE (09:09)
[2018-08-11] MEDS ORDERED: ONDANSETRON 4 MG/2 ML VIAL ONE (09:09)
[2018-08-11] MEDS ORDERED: fentaNYL CITR 100 MCG/2 ML AMP ONE (09:09)
[2018-08-11] MEDS ORDERED: KETAMINE HCL 200 MG/20 ML MDV ONE (09:10)
--- NOTE | 2018-08-11 10:48 | Short(Outpt) Discharge Summary ---
Discharge Summary Reason for Hosp/Final Diag: (1) Rectocele Status: Chronic Hospital Course & Plan: Anal exam under anesthesia completed without problems. Departure Discharge to: Home, Self Care Discharge Instructions Home Meds Active Scripts Ezetimibe (ZETIA) 10 Mg Tablet, 1 TAB PO QDAY, #90 TAB 3 Refills Prov:LETY PARADA MD 12/01/17 Metoprolol Succinate (TOPROL XL) 100 Mg Tab.er.24h, 1 TAB PO QDAY, #90 TAB 3 Refills Prov:LETY PARADA MD 12/01/17 Amlodipine Besylate/Benazepril (LOTREL 10-20 MG CAPSULE) 1 Each Capsule, 1 CAP PO QDAY, #90 CAPSULE 3 Refills Prov:LETY PARADA MD 12/01/17 Reported Medications Ubidecarenone (CO Q-10) 100 Mg Capsule, 3 CAP PO QDAY, CAPSULE 12/01/17 Cholecalciferol (Vitamin D3) (VITAMIN D) 2,000 Unit Tablet, 1 TAB PO QDAY, 12/01/17 Naproxen Sodium (ALEVE) 220 Mg Tablet, 1 TAB PO BID PRN for pain, TAB 12/01/17 Aspirin (ASPIR 81) 81 Mg Tablet.dr, 1 TAB PO 3XW, TAB 12/01/17 Follow up Referrals: General Surgery - 08/26/18 @ Surgery, General with OLESYA THAPA MD You have a follow up appointment scheduled with Dr. Thapa on 08/26/18, at 9:15am. Diet: Regular Activity: As Tolerated Special Instructions: Your anal exam didn't reveal any hemorrhoids but you do have a rectocele where the wall between your vagina and rectum is weakened and bows out during straining or bowel movements. I recommend that you continue the bowel regimen we started when I saw you in the office and, because the stool in your rectum during this examination today was very firm and dry, I recommend that you take a miralax every day as well. My office will call you in the next couple of days to refer you to a gardening supervisor to further evaluate and discuss options to treat the rectocele. OLESYA THAPA MD Aug 11, 2018 10:48
--- NOTE | 2018-08-11 10:56 | Post Operative Progress Note ---
Post Operative Progress Note Date: Aug 11, 2018 Time: 10:48 Surgeon: Elier Dictation number: [id number] Anesthesia: LMA by Dr. Espana Pre-Op Diagnosis: H/O hemorrhoids Fecal incontinence Post-Op Diagnosis: Rectocele Findings: C/W rectocele, no hemorrhoids or other perianal pathology Procedure(s): Anal examination under anesthesia Specimen Removed:(May be N/A): None Complications: None Fluids: See anesthesia record Estimated Blood Loss: None Date OP Note Dictated: Aug 11, 2018 Time OP Note Dictated: 10:50 OLESYA LOREDO MD Aug 11, 2018 10:56
--- NOTE | 2018-08-11 11:17 | OPERATIVE REPORT 1 ---
EVENT DATE: August 11, 2018 SURGEON: Yayo Thapa MD ANESTHESIOLOGIST: Saroj Rinaldi MD ANESTHESIA: LMA PREOPERATIVE DIAGNOSIS 1. History of hemorrhoids. 2. Fecal incontinence. POSTOPERATIVE DIAGNOSIS Rectocele. PROCEDURE PERFORMED Anal exam under anesthesia. COMPLICATIONS None. CONDITION Stable. ESTIMATED BLOOD LOSS None. FINDINGS This patient has a rectocele with obvious thinning of the rectovaginal wall and bowing anteriorly in the vagina with straining. There were no internal/external hemorrhoids or other anal or distal rectal masses. There was very solid and dehydrated fecal matter in the rectum. Previous hemorrhoidectomy sites have well healed without any obvious recurrence of hemorrhoids. INDICATIONS This is an 82-year-old female who presented to my office with perceived feeling of a mass around her anus and leakage of stool. She has had previous hemorrhoids and in fact, has had previous hemorrhoidectomy and she was requesting for me to surgically address her complaints. I did not detect anything obviously abnormal on my physical exam in the office and given her complaints, I recommended an anal exam under anesthesia with possible excision or rubber-banding of internal hemorrhoids if present. She was agreeable with proceeding with this procedure. DESCRIPTION OF PROCEDURE The patient was brought to the operating room and placed supine on the operating table where LMA anesthesia was administered. Her legs were placed in candy-cane stirrups. Her perianal and perineal regions were prepped and draped in sterile fashion. A timeout was completed. I performed a bimanual exam and could immediately feel thin tissue in the rectovaginal wall and then when I placed my fingers in the rectum the tissue easily bowed forward in the form of a rectocele. I performed a speculum exam of the anus and the anal canal and distal rectum and could see stool in the rectal vault that was very hard and dehydrated. Her previous surgical incisions from hemorrhoidectomy were well healed. There was no stenosis or stricture and the sphincter muscles were intact. There was no internal/external hemorrhoids or other anal or distal rectal masses. I then terminated the procedure at this point and she was awakened and LMA removed, transported to the recovery room in stable condition having tolerated the procedure without any apparent problems. RAY
[2018-08-11] MEDS ORDERED: FAMOTIDINE 20 MG TAB PO ONE (12:35)
[2018-08-11] MEDS ORDERED: NORMOSOL R SOLN(*) 1000 ML BAG 1,000 ML IV PRN (12:35)
[2018-08-11] MEDS ORDERED: MIDAZOLAM 2 MG/2 ML VIAL IVP PRN (12:35)
[2018-08-11] MEDS ORDERED: LIDOCAINE/SOD BICARB 8.4% SYR ID ONE (12:35)
== END 2018-08-11 11:45 | disposition home or self-care (01) ==
LOC: OR 00:11
PROVIDERS: ATTEND Surgery
DX: N81.6 Rectocele (principal); R15.9 Full incontinence of feces
CPT/HCPCS: 45990; A9270; J1100; J2001; J2250; J2405; J2704; J3010; J3490